=== PATIENT | female | born 1950 | race Two or more races ===

== ENCOUNTER 2024-02-09 05:28 | Emergency (ER) | payer OTHER, MEDICAID ==
[~2024-02-09] VITALS: Ht 154.9 cm; Wt 52.2 kg
[2024-02-09] MEDS ORDERED: ERYT3.5O9 EACHEYE (06:21)
[2024-02-09 06:33] VITALS: BP 133/70; TEMP 98; O2SAT 100
== END 2024-02-09 06:34 | disposition home or self-care (01) ==
LOC: ER 05:30
DX: H01.001 Unspecified blepharitis right upper eyelid (principal); M19.90 Unspecified osteoarthritis, unspecified site